=== PATIENT | female | born 1995 | race Caucasian/White ===

== ENCOUNTER 2018-10-25 14:22 | Emergency (ER) | payer OTHER ==
[2018-10-25 14:43] VITALS: BP 111/64
--- NOTE | 2018-10-25 14:48 | EDPHY ---
H & P Stated Complaint: Stephanie R ankle >1wk ago;wants it checked out;ambulatory Time Seen by Provider: 10/25/18 14:47 HPI/ROS: HPI: This is a 23-year-old female who presents with Chief Complaint: Rolled right ankle 1 week ago and wants that checked out. Location: Right ankle Quality: Injury Duration: 1 week ago Signs and Symptoms: No bleeding, no radiation, no numbness, no weakness, no tingling, no incontinence, no decreased range of motion, + swelling, + pain, no fever Timing: Acute Severity: [id number] Context: Patient reports that she was wearing high heels approximately 1 week ago and slipped on the ice jennifer in both of her ankles. She reports that she felt the most pain in the right lateral ankle. She reports that she has considerable bruising has now turned yellow. She reports that initially she has swelling but that has decreased. She is able to walk around with minimal pain at this time. The right lateral ankle is mix mill tender to touch and she is wondering if she fractured her ankle. Denies LOC/head injury/neck pain/ dizziness/nausea/vomiting/amnesia. She denies having any pain in her left ankle or foot at this time. She has been wearing boots and good supportive shoes with benefit over the last few days. Modifying Factors: [id number] pain medication Comment: ROS: A comprehensive 10 system review of systems is otherwise negative aside from elements mentioned in the history of present illness. MEDICAL/SURGICAL/SOCIAL HISTORY: Medical history: Generally healthy. Does not take any regular medications. IUD in place. Surgical history: Denies Social history: Smoker. CONSTITUTIONAL: Polite and cooperative, young adult white female, awake and alert, no obvious distress HEENT: Atraumatic and normocephalic. NECK: supple EXTREMITIES: 2/2 pedal pulses, strength 5/5, right Ankle: Yellow ecchymosis noted around the lateral malleolus; Plantar flexion to 50, dorsiflexion to 20 . Foot inversion to 35 degree. Mild tenderness/swelling Anterior talofibular ligament. Mild tenderness/swelling Calcaneofibular ligament, no tenderness/ swelling posterior talofibular ligament, no tenderness/swelling posterior inferior tibiofibular ligament. Achilles tendon intact. DIP/PIP/MCP flexion/ extension intact with good light touch sensation. no deformities, no clubbing, no cyanosis or edema. NEUROLOGICAL: no focal neuro deficits. GCS 15. Light touch sensation intact. SKIN: Warm and dry, no erythema. no rash. Good capillary refill. Source: Patient Exam Limitations: No limitations - Personal History LMP (Females 10-55): IUD In Place Current Tetanus Diphtheria and Acellular Pertussis (TDAP): Yes Tetanus Vaccine Date: < 10 YEARS - Medical/Surgical History Hx Asthma: No Hx Chronic Respiratory Disease: No Hx Diabetes: No Hx Cardiac Disease: No Hx Renal Disease: No Hx Cirrhosis: No Hx Alcoholism: No Hx HIV/AIDS: No Hx Splenectomy or Spleen Trauma: No Other PMH: IUD 05/15, - Social History Smoking Status: Current some day smoker Constitutional: Initial Vital Signs Temperature (C) 36.8 C 10/25/18 14:30 Heart Rate 78 10/25/18 14:30 Respiratory Rate 16 10/25/18 14:30 Blood Pressure 111/64 10/25/18 14:30 O2 Sat (%) 98 10/25/18 14:30 O2 Delivery Mode Room Air Allergies/Adverse Reactions: No Known Allergies Allergy (Verified 10/25/18 14:40) Home Medications: Medication Instructions Recorded NK [No Known Home Meds] 10/25/18 Medical Decision Making - Diagnostics Imaging Results: Imaging Impressions Ankle X-Ray 10/25/18 14:46 Impression: Negative right ankle series. ED Course/Re-evaluation: Right ankle x-rays ordered and my read shows no fracture, dislocation. No signs of neurovascular compromise/tenting of skin/compartment syndrome/ extremities and joints examined above and below area of concern and are neurovascularly intact. Patient politely declined ankle stirrup splint and/or walking boot. This patient was seen under the supervision of my secondary supervising physician. I evaluated care for this patient independently. Discussed this patient with Dr. Franks who did not see the patient. Differential Diagnosis: Ankle injury differential diagnosis includes but is not limited to tibia fracture, fibula fracture, metatarsal fracture, LisFranc fracture, achilles tendon rupture, sprain. Departure - Departure Disposition: Home, Routine, Self-Care Clinical Impression: Moderate right ankle sprain Qualifiers: Encounter type: initial encounter Qualified Code(s): S93.401A - Sprain of unspecified ligament of right ankle, initial encounter Condition: Good Instructions: Ankle Sprain (ED) Additional Instructions: Keep the Ankle supported using an Jagdeep wrap or splint until pain free Take Tylenol 650 mg every 4 hours and/or Ibuprofen 600 mg every 8 hours with food as needed for pain. Apply ice for 30 minutes at a time; 2-3 times per day for the next 1-2 days. Follow up with Orthopedics in 7-10 days if symptoms persist at which time they will evaluate and recommend with you if conservative management versus MRI is indicated. The x-rays obtained in the emergency department today demonstrate no evidence of an obvious fracture. Sometimes fractures are not obvious on the initial set of x-rays performed in the ED. For this reason, you should have repeat x-rays performed in 7-10 days if you are having any pain exclude the possibility of an occult fracture. Referrals: Damion Leon MD [Medical Doctor] - As per Instructions
== END 2018-10-25 15:20 | disposition home or self-care (01) ==
DX: S93.401A Sprain of unspecified ligament of right ankle, initial encounter (principal); W00.0XXA Fall on same level due to ice and snow, initial encounter; Y92.9 Unspecified place or not applicable; Y93.9 Activity, unspecified; Y99.9 Unspecified external cause status

== ENCOUNTER 2019-03-08 15:26 | Emergency (ER) | payer OTHER ==
--- NOTE | 2019-03-08 15:44 | EDPHY ---
H & P Stated Complaint: rolled l ankle 03/06 on uneven pavement Time Seen by Provider: 03/08/19 15:39 - Personal History LMP (Females 10-55): 15-21 Days Ago Current Tetanus Diphtheria and Acellular Pertussis (TDAP): Yes Tetanus Vaccine Date: < 10 YEARS - Medical/Surgical History Hx Asthma: No Hx Chronic Respiratory Disease: No Hx Diabetes: No Hx Cardiac Disease: No Hx Renal Disease: No Hx Cirrhosis: No Hx Alcoholism: No Hx HIV/AIDS: No Hx Splenectomy or Spleen Trauma: No Other PMH: IUD 05/15,celieac - Social History Smoking Status: Current some day smoker Constitutional: Initial Vital Signs Temperature (C) 36.7 C 03/08/19 15:33 Heart Rate 104 H 03/08/19 15:33 Respiratory Rate 17 03/08/19 15:33 Blood Pressure 101/74 03/08/19 15:33 O2 Sat (%) 96 03/08/19 15:33 O2 Delivery Mode Room Air Allergies/Adverse Reactions: gluten Allergy (Uncoded 03/08/19 15:33) Home Medications: Medication Instructions Recorded Ibuprofen [Motrin] 800 mg PO Q8 #20 tab 03/08/19 Medical Decision Making - Diagnostics Imaging: I viewed and interpreted images myself ED Course/Re-evaluation: CHIEF COMPLAINT: Left ankle injury HISTORY OF PRESENT ILLNESS: The patient is a 23 y/o female with a history of numerous ankle sprains complaining of a left ankle injury on Saturday, 2 days ago. The patient was walking [place] [address] in [place], when she accidently rolled her ankle. She subsequently fell and her a crack in her left ankle. She denies hitting her head , loss of consciousness or other injury. Since the fall she has had lateral and dorsal pain of the ankle. She has also had difficulty walking due to the pain. No fever, headache, body aches, lightheadedness, chest pain, heart palpitations , shortness of breath, cough, abdominal pain, urinary or bowel complaints, numbness, paresthesias. REVIEW OF SYSTEMS: A 10 point review of systems was performed and is negative with the exception of the elements mentioned in the history of present illness. PHYSICAL EXAM: HR, BP, O2 Sat, RR. Temp noted General Appearance: Alert, well hydrated, appropriate, and non-toxic appearing. Head: Atraumatic without scalp tenderness or obvious injury Eyes: Pupils equal, round, reactive to light and accommodation, EOMI, no trauma , no injection. Ears: Clear bilaterally, no perforation, normal landmarks Nose: Atraumatic, no rhinorrhea, clear. Throat: There is no erythema or exudates, no lesions, normal tonsils, mucus membranes moist. Neck: Supple, 2+ carotid upstroke, nontender, no lymphadenopathy. Respiratory: No retractions, no distress, no wheezes, and no accessory muscle use. Lungs are clear to auscultation bilaterally. Cardiovascular: Regular rate and rhythm, no murmurs, rubs, or gallops. Bilateral carotid, radial, dorsalis pedis, and posterior tibial pulses intact. Good capillary refill all extremities. Gastrointestinal: Abdomen is soft, nontender, non-distended, no masses, no rebound, no guarding, no peritoneal signs. Musculoskeletal: Left lateral and dorsal ankle tenderness and swelling. No tenting of the skin, patient is neurovascularly intact, joints above and below the injury are stable, no signs of compartment syndrome, no open fracture. Otherwise normal active ROM of all extremities, atraumatic. Neurological: Alert, appropriate, and interactive. The patient has normal DTRs and non-focal cranial nerves, motor, sensory, and cerebellar exam. Skin: No rashes, good turgor, no nodules on palpation. Past medical history: Celiac, ankle sprains Past surgical history: Denies Family history: Denies Social history: Friend at bedside, student at , single DIAGNOSTICS/PROCEDURES/CRITICAL CARE TIME: Left ankle x-ray: Distal fibula avulsion fracture. Procedure: Splint placement. A stirrup splint was applied to the left ankle by the tech. After application of the splint I returned and re-examined the patient. The splint was adequately immobilizing the joint and distal to the splint the patient's circulation and sensation was intact. DIFFERENTIAL DIAGNOSIS: The differential diagnosis for the patient's knee injury included but was not limited to fracture, ligamentous injury, contusion, muscular strain. MEDICAL DECISION MAKING: The patient is a 23 y/o female with a history of numerous ankle sprains presenting with a left ankle injury on Saturday, 2 days ago. She denies hitting her head, loss of consciousness or other injury. Left lateral and dorsal ankle tenderness and swelling. No tenting of the skin, patient is neurovascularly intact, joints above and below the injury are stable, no signs of compartment syndrome, no open fracture. Left ankle x-ray ordered. 1611: I reviewed patient's x-ray which reveals a left distal fibula avulsion fracture. Patient will be placed in an eliseo and stirrup splint, and weight bear as tolerated. 1612: Reassessed patient and discussed imaging findings. I have advised her to follow up with an orthopedic surgeon and have an MRI if symptoms do not improve. Return precautions provided; patient is comfortable with this plan. Departure - Departure Disposition: Home, Routine, Self-Care Clinical Impression: Left ankle injury Qualifiers: Encounter type: initial encounter Qualified Code(s): S99.912A - Unspecified injury of left ankle, initial encounter Fracture, fibula Qualifiers: Encounter type: initial encounter Fibula location: distal Fracture type: closed Fracture morphology: other fracture Laterality: left Qualified Code(s): S82.832A - Other fracture of upper and lower end of left fibula, initial encounter for closed fracture Condition: Good Instructions: Ankle Fracture (ED), Ankle Sprain (ED), Crutch Instructions (ED) , Ankle Stirrup Splint (ED) Additional Instructions: 1. Rest, ice, elevation. 2. Follow up with an orthopedic surgeon within one week. 3. Return to the emergency department for worsening pain, swelling, numbness, weakness or other concerns. 4. Wear splint at all times until reevaluation, but okay to shower without splint. 5. You will likely need an MRI to further evaluate your injury. 6. Use ibuprofen as directed for pain. 7. Weight bear as tolerated. Referrals: Carola Mora MD [Medical Doctor] - As per Instructions Prescriptions: Ibuprofen [Motrin] 800 mg PO Q8 #20 tab Report Scribed for: Kaushik Isaac Report Scribed by: Lisbeth Jones Date of Report: 03/08/19 Time of Report: 15:43
[2019-03-08 16:38] VITALS: BP 113/67
== END 2019-03-08 16:32 | disposition home or self-care (01) ==
DX: S82.832A Other fracture of upper and lower end of left fibula, initial encounter for closed fracture (principal); X50.1XXA Overexertion from prolonged static or awkward postures, initial encounter; Y93.01 Activity, walking, marching and hiking